=== PATIENT | male | born 1955 | race Caucasian/White ===

== ENCOUNTER 2024-07-24 10:33 | Outpatient (CLI) | payer BC, SELFPAY ==
--- NOTE | 2024-07-24 10:37 | FL_ITS ---
WS: [id number] Modified barium swallow, 07/24/2024 Clinical Data: Other dysphagia Comparison: None. Fluoroscopy time: 1 minute # of spot films: 1 Findings: The patient swallowed the various liquids and foods without problem. There is normal oral propulsion. In the hypopharynx the material moves normally with no aspiration or penetration. There is no signif icant residual on the piriform sinuses or vallecula. The barium tablet was propelled from the oral ca vity through the hypopharynx into the esophagus and and stomach without delay. FL/FL barium swallow modifd [id number] Impression: Normal modified barium swallow.
== END 2024-07-24 10:34 | disposition home or self-care (01) ==
LOC: RAD 10:36
PROVIDERS: Visit Provider Specialist
DX: R13.19 Other dysphagia (principal)
CPT/HCPCS: 74230; 92611